=== PATIENT | male | born 1990 | race Asian ===

== ENCOUNTER 2017-01-22 21:51 | Emergency (ER) | payer SELFPAY ==
[~2017-01-22] VITALS: Ht 175.3 cm; Wt 77.1 kg
[2017-01-22 22:20] VITALS: BP 123/69
[2017-01-22] MEDS ORDERED: POLYTRIM OP SOL10 ML OPHTHALM (22:30)
[2017-01-22] MEDS ORDERED: IBUPROFEN600 MG ORAL (22:30)
--- NOTE | 2017-01-22 22:31 | Emergency Room Report ---
History of Present Illness General Chief Complaint: Eye Problems Source: Patient Present Illness HPI Is a 26-year-old male who is visiting in [place]. He presents with possible foreign body in his left eye. He was wearing contacts he went to the beach. When he went back to the hotel he get the right contact lens out. He thought he got the left one out but felt a foreign body in the lower part of the eye. He been try to get that out been rubbing it. He is using Visine without any relief. He thinks is stuck in there. No other complaint. No nausea no vomiting. No fever or chills. Allergies: Coded Allergies: No Known Allergies (Unverified , 01/22/17) Patient History Past Medical History: see triage record, old chart reviewed Past Surgical History: none Pertinent Family History: none Social History: Denies: smoking Immunizations: other Reviewed Nursing Documentation: PMH: Agreed, PSxH: Agreed Review of Systems Eye: Reports: eye pain, Denies: blurred vision ENT: Denies: ear pain, nose congestion, throat swelling Respiratory: Denies: cough, shortness of breath Cardiovascular: Denies: chest pain, palpitations Gastrointestinal: Denies: abdominal pain, diarrhea, nausea, vomiting Musculoskeletal: Denies: back pain, joint pain Skin: Denies: rash Neurological: Denies: headache, numbness Endocrine: Denies: increased thirst, increased urine Hematologic/Lymphatic: Denies: easy bruising All Other Systems: negative except mentioned in HPI Physical Exam Vital Signs Date Time Temp Pulse Resp B/P (MAP) Pulse Ox O2 Delivery O2 Flow Rate FiO2 01/22/17 21:58 97.9 67 18 123/69 98 vitals normal Sp02 EP Interpretation: reviewed, normal General Appearance: well appearing, no apparent distress, alert Head: normocephalic, atraumatic Eyes: left eye other - Conjunctiva is injected. Mild edema. Sclerae also injected. There is no foreign body. Negative Franchesca sign., bilateral eye PERRL , bilateral eye EOMI ENT: hearing grossly normal, normal pharynx Neck: full range of motion, supple, no meningismus Respiratory: chest non-tender, lungs clear, normal breath sounds Cardiovascular #1: regular rate, rhythm, no murmur Gastrointestinal: normal bowel sounds, non tender, no mass, no organomegaly, no bruit, non-distended Musculoskeletal: back normal, gait/station normal, normal range of motion Psychiatric: mood/affect normal Skin: warm/dry Medical Decision Making Diagnostic Impression: Primary Impression: Conjunctivitis Qualified Codes: H10.32 - Unspecified acute conjunctivitis, left eye ER Course Patient with a conjunctivitis. This probably secondary to trauma from him trying to get a contact lens in that is not there. No foreign body. Last Vital Signs Date Time Temp Pulse Resp B/P (MAP) Pulse Ox O2 Delivery O2 Flow Rate FiO2 01/22/17 21:58 97.9 67 18 123/69 98 Status: improved Disposition: HOME, SELF-CARE Condition: Stable Scripts Polymyxin/Trimethoprim (Polytrim Eye Drops) 10 Ml Drops 2 DROP OPHTHALM THREE TIMES A DAY, #1 EA Instill in affected eye for 7 days Prov: JEREMY DE LA CRUZ M.D. 01/22/17 Ibuprofen* (MOTRIN*) 600 Mg Tablet 600 MG ORAL THREE TIMES A DAY, #30 TAB 0 Refills Prov: JEREMY DE LA CRUZ M.D. 01/22/17 Additional Instructions: Followup with your DrJosé Miguel in 7 days. Return if worse. Do not rub your eyes. JEREMY DE LA CRUZ M.D. Jan 22, 2017 22:31
[2017-01-22 22:35] VITALS: BP 123/69
== END 2017-01-22 22:35 | disposition home or self-care (01) ==
LOC: EMR 22:18
DX: H10.9 Unspecified conjunctivitis (principal)
CPT/HCPCS: 99284